=== PATIENT | male | born 1950 | race African-American/Black ===

== ENCOUNTER → 2020-08-12 | Outpatient (CLI) | payer OTHER | LOC: CAT 10:29 | PROVIDERS: ATTEND Nurse Practitioner | DX: Z13.6 Encounter for screening for cardiovascular disorders (principal); I25.10 Atherosclerotic heart disease of native coronary artery without angina pectoris; E78.00 Pure hypercholesterolemia, unspecified ==

== ENCOUNTER → 2020-08-22 | Outpatient (CLI) | payer OTHER | LOC: SJCVC 09:53 | PROVIDERS: ATTEND Internal Medicine | DX: R94.31 Abnormal electrocardiogram [ECG] [EKG] (principal); R00.1 Bradycardia, unspecified; E11.9 Type 2 diabetes mellitus without complications; I10 Essential (primary) hypertension; E78.5 Hyperlipidemia, unspecified; E66.8 Other obesity; Z79.899 Other long term (current) drug therapy ==

== ENCOUNTER → 2020-09-12 | Outpatient (CLI) | payer OTHER | LOC: SJCVCIMAG 07:35 | PROVIDERS: ATTEND Internal Medicine | DX: I08.8 Other rheumatic multiple valve diseases (principal); R00.0 Tachycardia, unspecified; I49.3 Ventricular premature depolarization; I11.9 Hypertensive heart disease without heart failure; E78.5 Hyperlipidemia, unspecified; E11.9 Type 2 diabetes mellitus without complications; E66.9 Obesity, unspecified; Z79.899 Other long term (current) drug therapy ==

== ENCOUNTER → 2020-09-16 | Outpatient (CLI) | payer OTHER | LOC: SJCVC 09:50 | PROVIDERS: ATTEND Internal Medicine | DX: I10 Essential (primary) hypertension (principal); I25.41 Coronary artery aneurysm; I71.2 Thoracic aortic aneurysm, without rupture ==

== ENCOUNTER → 2021-02-04 | Outpatient (CLI) | payer OTHER ==
[~2021-02-04] MED LIST: ACTOS15 MG PO; ATENOLOL 50MG T50 MG PO; GLUMETZA500 PO; LANTUS SUBQ; LISINOPRIL-HCT1 EAC2 PO; PROSCAR 5MG TABL5 M1 PO; SIMVASTATIN40 MG PO
== END ==
LOC: LAB 09:45
PROVIDERS: ATTEND Specialist
DX: Z01.812 Encounter for preprocedural laboratory examination (principal); Z20.822 Contact with and (suspected) exposure to COVID-19

== ENCOUNTER → 2021-02-07 | Outpatient (CLI) | payer OTHER ==
[~2021-02-07] VITALS: Ht 172.7 cm; Wt 110.2 kg
--- NOTE | 2021-02-09 14:04 | P ---
[facility] [place] [address] PROCEDURE REPORT Name: VINICIO IRAHETA [id number] Admission: 02/07/21 Attend Phys: Timoteo De La Garza Discharge: Date of : 50 Report #: [id number] THIS REPORT FOR: cc: Kwame Thomas Andrea RNP McElhinney, Christian C. MD ~ DATE OF SERVICE: 02/07/2021 PROCEDURE PERFORMED: Colonoscopy with polypectomies. HISTORY OF PRESENT ILLNESS: The patient is a 70-year-old male who presents today for routine screening colonoscopy. Denies any symptoms. Last colonoscopy was approximately 10 years ago. No family history of colon cancer. DESCRIPTION OF PROCEDURE: The risks and benefits of the procedure were explained to the patient, those risks including but not limited to bleeding, perforation and the risk of sedation. He understood these risks and gave informed consent. Sedation was given using propofol per anesthesia. Next, a digital rectal exam was initially performed, which was normal. Next, using a standard Olympus colonoscope, the scope was placed in the patient's anus and advanced under direct vision to the cecum. The overall prep was excellent. The cecum was normal in appearance. On the ileocecal valve, a 3 mm sessile polyp was noted. This was removed with cold forceps, otherwise normal. The ascending and transverse colon were normal. In the descending colon, another 4 mm sessile polyp was noted. This was removed with cold forceps. In the sigmoid colon, 2 polyps were noted, one was 3 mm and removed by cold forceps, the other one was 5 and removed by snare cautery. The rectal mucosa was normal. On retroflexion, small nonbleeding internal hemorrhoids were noted. The scope was then withdrawn and the procedure terminated. The patient tolerated the procedure well. IMPRESSION: 1. Small colonic polyps. 2. Small internal hemorrhoids. 3. Otherwise, normal colonoscopy. RECOMMENDATIONS: 1. Await biopsy results. 2. If polyps are hyperplastic, repeat in 10 years; if adenomatous polyp, repeat in [address] [address] PROCEDURE REPORT Name: VINICIO IRAHETA Room #: REG [facility] [place]#: [id number] Admission: 02/07/21 Attend Phys: Timoteo De L aGarza Discharge: Date of : 50 Report #: [id number] Thank you for allowing me to participate in his care. <ELECTRONICALLY SIGNED> By: Timoteo Garsia MD 02/09/21 1404 [id number] 1400 Timoteo Garsia MD /nt
--- NOTE | 2021-02-10 19:06 | PATH ---
[facility] [place] [address] PATHOLOGY RPT PROCEDURE Name: VINICIO IRAHETA Room #: REG [facility] M.R.#: [id number] Admission: 02/07/21 Date of : 50 Discharge: Report #: [id number] Path Case #: [id number] [facility] Accession Number: [id number] . 01 Material submitted: . PART A: cecum - ILEOCECAL VALVE POLYP PART B: colon - DESCENDING COLON POLYP. Modifiers: descending PART C: sigmoid colon - SIGMOID COLON POLYP X2 . 01 Clinical history: . SCREENING - COLON CANCER . . 02 Diagnosis: A. Polyp, ileocecal valve polyp, endoscopic biopsy: - Hyperplastic polyp and a lymphoid aggregate. - Negative for dysplasia. . B. Polyp, descending colon polyp, endoscopic biopsy: - Tubular adenoma adjacent to a hyperplastic polyp. - Negative for high grade dysplasia within the tubular adenoma. . C. Polyp x2, sigmoid colon polyp, endoscopic biopsy: - Tubular adenoma, minute. - Arising in the background of hyperplastic polyp. - Negative for high grade dysplasia within the tubular adenoma. . (IUV:mml; 02/10/2021) QLM 02/10/2021 1606 Local . 02 Electronically signed: . Malena Joseph MD, Pathologist NPI- [id number] . 01 Gross description: . A. Received in formalin labeled "Sanket, Vinicio, ileocecal valve polyp" are multiple vera-brown soft tissue fragments measuring in aggregate 0.5 x 0.5 x 0.1 cm. The specimen is submitted entirely in A1. . B. Received in formalin labeled "Brown, Vinicio, descending colon polyp" is a fragment of vera-brown soft tissue measuring 0.4 x 0.3 x 0.1 cm. The specimen is submitted entirely in B1. . C. Received in formalin labeled "Brown, Vinicio, sigmoid colon polyp" and labeled on the requisition as "x2" are multiple vera-brown soft tissue fragments measuring in aggregate 0.7 x 0.5 x 0.2 cm. The specimen is submitted entirely in C1. ([facility]; 02/09/2021) [address] [address] PATHOLOGY RPT PROCEDURE Name: VINICIO IRAHETA Room #: REG CLI Liu#: [id number] Admission: 02/07/21 Date of : 50 Discharge: Report #: [id number] Path Case #: [id number] SY/SYC 02/09/2021 1140 Local . 02 Pathologist provided ICD-10: K63.5, D12.4, D12.5 . 02 CPT . 531186, 363150, 071146 Specimen Comment: A courtesy copy of this report has been sent to [phone], [phone] Specimen Comment: [phone] Specimen Comment: Report sent to / DR GARCIA Performed at: [address], [place] [id number] MD Alan Covington MD Phone: [phone] Performed at: [address] [id number] MD Malena Joseph MD Phone: [phone]
== END | disposition home or self-care (01) ==
LOC: GI 06:58
PROVIDERS: ATTEND Specialist
DX: Z12.11 Encounter for screening for malignant neoplasm of colon (principal); D12.4 Benign neoplasm of descending colon; D12.5 Benign neoplasm of sigmoid colon; K64.8 Other hemorrhoids; I10 Essential (primary) hypertension; E11.9 Type 2 diabetes mellitus without complications; E78.5 Hyperlipidemia, unspecified; Z98.890 Other specified postprocedural states; Z79.899 Other long term (current) drug therapy; Z87.442 Personal history of urinary calculi; Z98.41 Cataract extraction status, right eye; Z98.42 Cataract extraction status, left eye
CPT/HCPCS: 62110; 62900

== ENCOUNTER → 2021-03-28 | Outpatient (CLI) | payer OTHER | LOC: SJCVCIMAG 03-20 07:58 | PROVIDERS: ATTEND Internal Medicine | DX: I08.8 Other rheumatic multiple valve diseases (principal); I11.9 Hypertensive heart disease without heart failure; E78.5 Hyperlipidemia, unspecified; E11.9 Type 2 diabetes mellitus without complications; I71.4 Abdominal aortic aneurysm, without rupture; I25.10 Atherosclerotic heart disease of native coronary artery without angina pectoris; E66.9 Obesity, unspecified; E78.00 Pure hypercholesterolemia, unspecified; Z79.4 Long term (current) use of insulin; Z79.899 Other long term (current) drug therapy; Z82.49 Family history of ischemic heart disease and other diseases of the circulatory system ==

== ENCOUNTER → 2021-09-29 | Outpatient (CLI) | payer OTHER | LOC: SJCVCIMAG 09-22 08:20 | PROVIDERS: ATTEND Internal Medicine | DX: R94.31 Abnormal electrocardiogram [ECG] [EKG] (principal); I11.9 Hypertensive heart disease without heart failure; I44.0 Atrioventricular block, first degree; R00.1 Bradycardia, unspecified; I45.19 Other right bundle-branch block; E78.5 Hyperlipidemia, unspecified; E11.9 Type 2 diabetes mellitus without complications; E78.00 Pure hypercholesterolemia, unspecified; E66.9 Obesity, unspecified; Z79.4 Long term (current) use of insulin; Z79.84 Long term (current) use of oral hypoglycemic drugs; Z79.899 Other long term (current) drug therapy; Z98.890 Other specified postprocedural states ==